=== PATIENT | male | born 1940 | race Caucasian/White ===

== ENCOUNTER 2017-10-21 15:30 | Inpatient (IN) | payer OTHER ==
[~2017-10-21] VITALS: Ht 160 cm; Wt 90.7 kg
[2017-10-21] MEDS ORDERED: LIPITOR20 MG (16:01)
[2017-10-21] MEDS ORDERED: METOPROLOL SUCC25 MG (16:01)
[2017-10-21] MEDS ORDERED: PLAVIX75 MG (16:01)
[2017-10-27] MEDS ORDERED: XOPENEX0.63 MG/3 IH (10:22)
[2017-10-27] MEDS ORDERED: CEFDINIR300 MG PO (10:25)
== END 2017-10-27 12:18 | disposition home or self-care (01) | DRG 202 ==
LOC: ER 15:30 → SEC-K 10-22 00:28 → SURH 10-22 00:28
PROC: 4A033R1 Measurement of Arterial Saturation, Peripheral, Percutaneous Approach (ICD-10-PCS; 2017-10-22)
PROC: 8E0ZXY6 Isolation (ICD-10-PCS; 2017-10-22)
PROC: BW24ZZZ Computerized Tomography (CT Scan) of Chest and Abdomen (ICD-10-PCS; 2017-10-22)
PROC: B246ZZZ Ultrasonography of Right and Left Heart (ICD-10-PCS; 2017-10-22)
PROC: 3E0F7GC Introduction of Other Therapeutic Substance into Respiratory Tract, Via Natural or Artificial Opening (ICD-10-PCS; principal; 2017-10-24)
DX: J45.41 Moderate persistent asthma with (acute) exacerbation (principal); I50.30 Unspecified diastolic (congestive) heart failure; J11.1 Influenza due to unidentified influenza virus with other respiratory manifestations; I11.0 Hypertensive heart disease with heart failure; I25.10 Atherosclerotic heart disease of native coronary artery without angina pectoris; E78.00 Pure hypercholesterolemia, unspecified; K80.80 Other cholelithiasis without obstruction; R09.02 Hypoxemia; Z87.891 Personal history of nicotine dependence; Z95.0 Presence of cardiac pacemaker

== ENCOUNTER 2017-12-09 10:07 | Outpatient (CLI) | payer OTHER ==
[~2017-12-09 10:07] MED LIST: CEFDINIR300 MG PO; LIPITOR20 MG; METOPROLOL SUCC25 MG; PLAVIX75 MG; XOPENEX0.63 MG/3 IH
== END 2017-12-09 10:39 | disposition home or self-care (01) ==
LOC: RAD 501 10:07
DX: J18.9 Pneumonia, unspecified organism (principal); R05 Cough